=== PATIENT | female | born 1970 | race Caucasian/White ===

== ENCOUNTER → 2017-10-05 | Outpatient (CLI) | payer OTHER ==
[~2017-10-05] MED LIST: ALBU2.5V36 INH; ALBU8.5H12 IH; ASPI-1 PO; ASPI-663 PO; ASPI-692 PO; ASPI81TA15 PO; CLOB15CR22 TP; ESCI20TA38 PO; IBUP800T37 PO; IPRA3AMP21 IH; KET10 PO; LEVO-85 PO; LEVO50TA86 PO; LOR5 PO; METF-410 PO; ONDA4TAB SL; PER PO; PRED20TA6 PO; PROM5SYR PO
--- NOTE | 2017-10-06 10:44 | RADIOLOGY IMAGING REPORT ---
FACILITY: [facility] - [place] PATIENT NAME: NATE HORTA : [id number] MR: [id number] V: [id number] EXAM DATE: ORDERING PHYSICIAN: ASHIA BONDS TECHNOLOGIST: Inna Cid PROCEDURE:BILATERAL DIGITAL SCREENING MAMMOGRAM WITH CAD ASSISTED INTERPRETATION & 3D TOMOSYNTHESIS COMPARISON:Prior mammograms dated 04/24/15, 07/13/13, 06/22/13, 04/08/14 INDICATIONS:SCREENING FINDINGS: A small amount of fibroglandular tissue is seen throughout the breasts. The parenchymal pattern has remained stable allowing for difference in mammographic technique & patient positioning. There is no evidence of malignant appearing mass, malignant appearing calcification or other secondary sign of malignancy in either breast. DIAGNOSTIC CATEGORY 1--NEGATIVE. RECOMMENDATIONS: ROUTINE MAMMOGRAM AND CLINICAL EVALUATION. IMPRESSION: BIRADS 1: Negative No significant abnormality is seen. Dictated by: Shireen Gates M.D. on 10/05/2017 at 16:02 Transcribed by: RANDOLPH on 10/06/2017 at 7:10 Approved by: Shireen Gates M.D. on 10/06/2017 at 10:43 [facility]
== END ==
LOC: MAMO 01:25
PROVIDERS: ATTEND Obstetrics & Gynecology
DX: Z12.31 Encounter for screening mammogram for malignant neoplasm of breast (principal)
CPT/HCPCS: 77063; 77067

== ENCOUNTER → 2019-01-18 | Outpatient (REF) | payer OTHER ==
[~2019-01-18] MED LIST changes: +IPRA3AMP10 IH; -IPRA3AMP21 IH; -METF-410 PO; +METF-450 PO
== END ==
LOC: ZZSENDIN 08:00
PROVIDERS: ATTEND Family Medicine
DX: Z77.21 Contact with and (suspected) exposure to potentially hazardous body fluids (principal)
CPT/HCPCS: 80074; 86703; 86803